=== PATIENT | female | born 1950 | race Caucasian/White ===

== ENCOUNTER 2020-12-05 15:00 | Outpatient (CLI) | payer BC ==
[2020-12-06 19:10] LABS: SARS-CoV-2 PCR by NAA Not Detected (NotDetected)
== END 2020-12-05 15:01 | disposition home or self-care (01) ==
LOC: CSHLAB 15:00
PROVIDERS: ATTEND Internal Medicine Gastroenterology
DX: Z20.822 Contact with and (suspected) exposure to COVID-19 (principal); Z12.11 Encounter for screening for malignant neoplasm of colon
CPT/HCPCS: 87635; U0003; U0005

== ENCOUNTER 2020-12-10 10:17 | Day surgery (SDC) | payer BC ==
[2020-12-07 10:55] VITALS: BMI 29.5
[2020-12-10] MEDS ORDERED: Lidocaine 1% MPF 2 ML VIAL ONE (11:19)
[2020-12-10] MEDS ORDERED: Lidocaine 1% PF 5 ML VIAL ONE (13:19)
[2020-12-10] MEDS ORDERED: PROPOFOL 40 ML ONE ×2 (13:19→13:39)
== END 2020-12-10 14:55 | disposition home or self-care (01) ==
LOC: CSHSDC 10:17
PROVIDERS: ATTEND Internal Medicine Gastroenterology
DX: Z12.11 Encounter for screening for malignant neoplasm of colon (principal); K63.5 Polyp of colon; K64.9 Unspecified hemorrhoids; I10 Essential (primary) hypertension; E78.5 Hyperlipidemia, unspecified
CPT/HCPCS: 88305; J2704

== ENCOUNTER 2020-12-24 13:30 | Outpatient (CLI) | payer BC | END 2020-12-24 13:31 | disposition home or self-care (01) | LOC: CSHMAMMO 13:30 | PROVIDERS: ATTEND Family Medicine | DX: Z12.31 Encounter for screening mammogram for malignant neoplasm of breast (principal) | CPT/HCPCS: 77063; 77067 ==

== ENCOUNTER 2022-07-31 09:38 | Outpatient (CLI) | payer BC | END 2022-07-31 09:39 | disposition home or self-care (01) | LOC: CSHMAMMO 09:38 | PROVIDERS: ATTEND Family Medicine | DX: Z12.31 Encounter for screening mammogram for malignant neoplasm of breast (principal) | CPT/HCPCS: 77063; 77067 ==